=== PATIENT | male | born 1975 | race Caucasian/White ===

== ENCOUNTER 2022-03-18 11:28 | Emergency (ER) | payer BC, SELFPAY ==
[2022-03-18 11:40] VITALS: BP 151/97; PULSE 99; RESP 18; TEMP 36.6; O2SAT 98
--- NOTE | 2022-03-18 11:53 | ECG_ITS ---
Measurements Intervals [place] Rate: 136 P: GA: 0 QRS: 39 QRSD: 101 T: -30 QT: 298 QTc: 449 Interpretive Statements ATRIAL FIBRILLATION WITH RAPID VENTRICULAR RESPONSE CONSIDER INFERIOR INFARCT, AGE INDETERMINATE ABNORMAL ECG NO PREVIOUS ECG AVAILABLE FOR COMPARISON Electronically Signed On 03-18-2022 12:03:47 WATER SUPERVISOR by David Hoyos D.O.
--- NOTE | 2022-03-18 11:53 | ED.CHESTPAIN ---
HPI - Chest Pain General Stated Complaint: heart flutters Time Seen by Provider: 03/18/22 11:53 Source: patient Mode of arrival: ambulatory Limitations: no limitations History of Present Illness HPI narrative: 46-year-old male presented for complaint of heart flutter since 0700 today. States he has tried to clear the sensation with coughing but it has been constant without change today. Endorses occasional dizziness. Denies chest pain, shortness of breath, nausea or vomiting. Has recently taken OTC meds for cough and congestion, last taken about 4 days ago. Endorses about 20 years ago he had similar symptoms, stayed in the hospital but was not diagnosed with anything per pt. Since then he has had intermittent brief palpitations about every 2 weeks that clears with a cough. Reports family history of irregular heart rhythm. Patient lives in [facility], plans to leave tomorrow. Related Data Home Medications Medication Instructions Recorded Confirmed No Home Medications 03/18/22 03/18/22 Allergies Allergy/AdvReac Type Severity Reaction Status Date / Time morphine Allergy Unknown Other Verified 03/18/22 11:51 Review of Systems Review of Systems: CONSTITUTIONAL: Denies body aches, fever, chills, or sweats. EYES: Denies visual changes, redness, or discharge. ENT: Denies rhinorrhea, congestion, sore throat, or otalgia. CARDIOVASCULAR: Denies chest pain or edema. RESPIRATORY: Denies cough or dyspnea. GASTROINTESTINAL: Denies abdominal pain, nausea, vomiting, or diarrhea. GENITOURINARY: Denies dysuria or hematuria. SKIN: Denies rash, itching, or wounds. MUSCULOSKELETAL: Denies back pain, joint pain, or myalgia. NEUROLOGIC: Denies headache, numbness, tingling, or weakness. All systems reviewed & are unremarkable except as noted in HPI and below PMFSH Family History Family History Mother Hypertension Patient's mother is in good health Father Patient's father is in good health Grandparent Cerebrovascular accident, Onset Age: 200 Family history of malignant neoplasm of male breast Social History Social History Alcohol intake: current Comments At time of signature, I have reviewed and agree with nursing past medical, surgical, social and family history unless otherwise noted. Please see nursing chart for further information. There is no relevant family history pertinent to the presenting complaint Exam Narrative: GENERAL: Well-appearing, in no acute distress. HEAD: Normocephalic, atraumatic. EYES: EOMI. No redness or drainage. Conjunctivae normal. ENT: Mucous membranes pink and moist. No rhinorrhea. TMs normal bilaterally. Throat normal. Uvula midline. NECK: Normal AROM. Supple. No lymphadenopathy. CHEST: Clear to auscultation. HEART: Irregular rhythm. ABDOMEN: Soft, nontender, nondistended, normal active bowel sounds. EXTREMITIES: Normal range of motion. No edema. SKIN: Warm, dry, no rash. Capillary refill normal. Normal skin turgor. NEURO: No focal deficits. Alert and oriented x3. Gait steady. PSYCH: Normal affect. Course Course Emergency Course: Patient is aware of diagnosis, understands and agrees to treatment plan. Anticipatory guidance given. Portions of this record may have been created with voice recognition software Level of Care: Express Care Visit Vital Signs Vital signs: Vital Signs Temperature 97.8 F 03/18/22 11:40 Pulse Rate 99 03/18/22 11:40 Respiratory Rate 18 03/18/22 11:40 Blood Pressure 151/97 H 03/18/22 11:40 Pulse Oximetry 98 03/18/22 11:40 Oxygen Delivery Room Air 03/18/22 11:40 Temperature 97.8 F 03/18/22 11:40 Pulse Rate 99 03/18/22 11:40 Respiratory Rate 18 03/18/22 11:40 Blood Pressure 151/97 H 03/18/22 11:40 Pulse Oximetry 98 03/18/22 11:40 Oxygen Delivery Room Air 03/18/22 11:40 Transfer Transfered to
== END 2022-03-18 12:07 | disposition short-term general hospital (02) ==
PROVIDERS: Emergency Provider Nurse Practitioner Family; PCP Family Medicine
DX: I48.91 Unspecified atrial fibrillation (principal)
CPT/HCPCS: 93005; 99213; G0463

== ENCOUNTER 2022-03-18 12:21 | Observation (INO) | payer BC, SELFPAY ==
[2022-03-18] VITALS (48 sets, daily range): BP systolic 113–151; BP diastolic 68–129; PULSE 76–139; RESP 12–27; TEMP 36.6; O2SAT 95–100; BMI 34.5
--- NOTE | ~2022-03-18 | XR_ITS ---
XR chest 2V 03/18/2022 14:05 Indication: Chest pain Procedure: AP and lateral views of the chest Comparison: 07/04/2008 Findings: Heart size normal. No focal air space disease, pulmonary edema, pleural effusion or suspect ed pneumothorax. Impression: 1: No acute cardiopulmonary disease. Reviewed, dictated and finalized at location A. T QUALITY MANAGER Impression: 1: No acute cardiopulmonary disease.
--- NOTE | 2022-03-18 12:24 | ECG_ITS ---
Measurements Intervals [place] Rate: 143 P: AL: 0 QRS: 43 QRSD: 99 T: -16 QT: 276 QTc: 427 Interpretive Statements ATRIAL FIBRILLATION WITH RAPID VENTRICULAR RESPONSE CONSIDER INFERIOR INFARCT, AGE INDETERMINATE BASELINE ARTIFACT- I, II, AVR ABNORMAL ECG COMPARED TO ECG 03/18/2022 11:52:12 NO SIGNIFICANT CHANGES Electronically Signed On 03-18-2022 12:48:35 WHARF OPERATOR by David Hoyos D.O.
[2022-03-18 12:43] LABS: Basophils Percent Auto 0.5 % (0.2-1.2); Eosinophils Absolute Auto 0.1 K/mm3 (0-0.3); Eosinophils Percent Auto 1.4 % (0-4.4); Hematocrit 45.9 % (42.0-52.0); Hemoglobin 15.5 g/dL (14.0-18.0); Immature Granulocyte Absolute 0.02 K/mm3 (0.00-0.031); Immature Granulocyte Percent A 0.3 % (0-0.5); Lymphocytes Absolute Auto 3.03 K/mm3 (0.9-3.2); Lymphocytes Percent Auto 38.6 % (18.3-44.2); Mean Corpuscular HGB Conc 33.8 g/dl (32-36); Mean Corpuscular Hemoglobin 30.6 pg (26-34); Mean Corpuscular Volume 90.7 fl (80-100); Mean Platelet Volume 9.7 fl (7.4-10.4); Monocytes Absolute Auto 0.5 K/mm3 (0.1-0.6); Monocytes Percent Auto 6.5 % (2.6-8.5); Neutrophils Absolute Auto 4.1 K/mm3 (1.3-6.7); Neutrophils Percent Auto 52.7 % (45.5-73.1); Platelet Count Result 213 k/mm3 (150-375); Red Blood Count 5.06 M/mm3 (4.6-6.20); Red Cell Distribution Width 13.5 % (11.5-14.5); White Blood Count 7.8 K/mm3 (4.5-10.0)
[2022-03-18 12:52] LABS: Alanine Aminotransferase 76 U/L (6-50); Albumin Level 4.4 g/dL (3.5-5.1); Alkaline Phosphatase 74 U/L (38-126); Anion Gap 5 mmol/L (8-16); Aspartate Amino Transferase 35 U/L (17-59); Bilirubin,Total 0.5 mg/dL (0.2-1.3); Blood Urea Nitrogen 14 mg/dL (9-20); Calcium 8.4 mg/dL (8.4-10.2); Carbon Dioxide 27 mmol/L (22-30); Chloride 106 mmol/L (98-107); Estimated CRCL calculation 103 ml/min; Estimated Glomerular Filt Rate > 60; Glucose 120 mg/dL (65-110); Lipase 64 U/L (23-300); Potassium 3.7 mmol/L (3.4-5.0); Sodium 138 mmol/L (137-145)
[2022-03-18 12:56] LABS: Partial Thromboplastin Time 25.8 SECONDS (22.3-36.8); Prothrombin Time 12.3 Seconds (11.1-14.7)
[2022-03-18 13:02] LABS: Troponin I < 0.012 ng/mL (0.000-0.034)
--- NOTE | 2022-03-18 13:05 | ED.CHESTPAIN ---
HPI - Chest Pain General Chief Complaint: Chest Pain Stated Complaint: chest pain, new onset afib, Time Seen by Provider: 03/18/22 13:05 History of Present Illness HPI narrative: Patient is a 46-year-old male presenting with palpitations. Patient states that he woke this morning with a fluttering in the left side of his chest associated with chest heaviness. States that this sensation continued throughout the morning and he had multiple episodes of diaphoresis and lightheadedness as well. States that he had an episode similar to this approximately 20 years ago but he was not diagnosed with A. fib at this time and was not started on medications. Patient states that he has had a cold which has been improving over the last several weeks. Patient works for the [employer] and resides in [facility]. He and his are stateside for the holidays. He was recently on a 36-hour flight to the . They are supposed to leave tomorrow morning to return. Patient states they have limited access to medical care in [facility]. Related Data Home Medications Medication Instructions Recorded Confirmed No Home Medications 03/18/22 03/18/22 Allergies Allergy/AdvReac Type Severity Reaction Status Date / Time morphine Allergy Unknown Other Verified 03/18/22 11:51 Review of Systems Review of Systems: All systems reviewed & are unremarkable except as noted in HPI and below PMFSH Family History Family History Mother Hypertension Patient's mother is in good health Father Patient's father is in good health Grandparent Cerebrovascular accident, Onset Age: 200 Family history of malignant neoplasm of male breast Social History Social History Alcohol intake: current Exam Narrative: GENERAL: Well-appearing, well-nourished, and in no acute distress. HEAD: Normocephalic, atraumatic. EYES: PERRLA and EOMI. ENT: Nares clear, no rhinorrhea or epistaxis. Mucous membranes moist. NECK: Supple. CHEST: Clear to auscultation. No respiratory distress. HEART: Irregular rhythm, tachycardic. No murmur heard. Normal peripheral pulses. ABDOMEN: Soft, nontender, nondistended, normal active bowel sounds. EXTREMITIES: Normal range of motion. No edema. SKIN: Warm, dry, no rash. NEURO: No focal deficits. Alert and oriented x3. PSYCH: Normal mood and affect. Course Vital Signs Vital signs: Vital Signs Temperature 97.9 F 03/18/22 12:31 Pulse Rate 82 03/18/22 12:31 Blood Pressure 151/89 H 03/18/22 12:31 Pulse Oximetry 98 03/18/22 12:31 Temperature 97.9 F 03/18/22 12:31 Pulse Rate 134 H 03/18/22 14:06 Respiratory Rate 24 H 03/18/22 13:09 Blood Pressure 120/86 03/18/22 14:06 Pulse Oximetry 98 03/18/22 13:09 MDM - Chest Pain MDM Narrative Medical decision making narrative: Patient is a 46-year-old male presenting with palpitations, lightheadedness, chest discomfort. Patient tachycardic in the 130s to 140s on arrival. Normotensive. EKG per my interpretation shows atrial fibrillation with RVR with a ventricular rate of 143, no ST elevations or depressions. Patient given a dose of 10 mg diltiazem with decrease in his rate to 100s. Unfortunately, his rate bumped back up to the 120s-130s so diltiazem drip ordered. Patient was supposed to leave for [facility] tomorrow morning and states he is unable to access medical care there. Given this and his uncontrolled rate, decision made to admit him to medicine for further management. Lab Data 03/18/22 12:33 03/18/22 12:33 Labs: Lab Results 03/18/22 03/18/22 03/18/22 Range/Units 12:33 12:33 12:33 WBC 7.8 (4.5-10.0) K/mm3 RBC 5.06 (4.6-6.20) M/mm3 Hgb 15.5 (14.0-18.0) g/dL Hct 45.9 (42.0-52.0) % MCV 90.7 (80-100) fl MCH 30.6 (26-34) pg MCHC 33.8 (32-36) g/dl RDW 13.5 (11.5-14.5)
[2022-03-18] MEDS: dilTIAZem HCl INJ 25 MG/5 ML VIAL 10 MG IV PUSH (13:09)
[2022-03-18] MEDS: dilTIAZem 100 MG/100 ML 100 MG/100 ML BAG IV CONT (14:06)
[2022-03-18 14:19] LABS: Influenza A QL RT-PCR Negative (Negative); Influenza B QL RT-PCR Negative (Negative); SARS-CoV-2 RNA PCR Negative
--- NOTE | 2022-03-18 16:11 | PM.IMHP ---
H&P: HPI History of Present Illness Date/Time: 03/18/22 16:11 Chief Complaint: Chest pain Narrative: This is of 46 year old male patient who stated that he went into a brief period of AFib approximately 20 years ago. It resolved on its own and has never been on any medication. The patient woke up this morning with fluttering in his chest. He felt some left-sided chest heaviness. Patient had multiple episodes of diaphoresis and lightheadedness. The patient has been struggling with a cold over the last several weeks. 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 He recently had a 36 hour flight to the [facility]. The patient is supposed to leave tomorrow to return to [facility]. He has limited access to medical care in [facility]. Chest x-ray was read as no acute cardiopulmonary disease. Patient was given an aspirin, IV Cardizem, and Cardizem drip. The patient is being admitted to observation status on date of service 03/18/2022. Review of Systems Review of Systems: See HPI All systems reviewed & are unremarkable except as noted in HPI and below Constitutional: Constitutional: Reports as per HPI and Reports no additional constitutional complaints Eyes: Eyes: Reports as per HPI and Reports no additional eye complaints ENT: Reports system reviewed and no additional complaints, except as documented and Reports Normal hearing present Cardiovascular: Cardiovascular: Reports no additional cardiovascular complaints Respiratory: Respiratory: Reports no additional respiratory complaints and Reports no additional respiratory complaints Gastrointestinal: Gastrointestinal: Reports as per HPI and Reports no additional gastrointestinal complaints Musculoskeletal: Musculoskeletal: Reports no additional musculoskeletal complaints Integumentary/Breasts: Skin/Breast: Reports system reviewed and no additional complaints, except as docu and Reports as per HPI Neurologic: Reports system reviewed and no additional complaints, except as documented, Reports as per HPI and Reports Normal hearing present Psychiatric: Psychiatric: Reports no additional psychiatric complaints and Reports as per HPI Endocrine: Endocrine: Reports no additional endocrine complaints Hematologic/Lymphatic: Hematologic/Lymphatic: Reports no additional hematologic/lymphatic complaints Allergic/Immunologic: Allergic/Immunologic: Reports no additional allergic/immunologic complaints [facility] Surgical History Surgical History H/O arthroscopic knee surgery 2 times right knee H/O esophagogastroduodenoscopy H/O: vasectomy Family History Family History Mother Hypertension Patient's mother is in good health Father Patient's father is in good health Grandparent Cerebrovascular accident, Onset Age: 200 Family history of malignant neoplasm of male breast Social History Social History (Updated 03/18/22 @ 17:45 by Ning Nam NP) Social History: She is and has 2 children. 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 He is a lifelong nonsmoker. His is the durable power glassware verifier for healthcare. Code status full code Smoking status: Never smoker Alcohol intake: current Meds Home Medications and Allergies Home Medications Medication Instructions Recorded Confirmed Type No Home Medications 03/18/22 03/18/22 History Allergies Allergy/AdvReac Type Severity Reaction Status Date / Time morphine Allergy Unknown Other Verified 03/18/22 11:51 Vital Signs Vital Signs - 24 hr 03/18/22 12:31 03/18/22 13:09 03/18/22 14:06 Temperature 36.6 C Pulse Rate 82 132 H 134 H Respiratory Rate 24 H Blood Pressure 151/89 H 148/129 H 120/86 Pulse Oximetry 98 98 Exam Const: General: cooperative, healthy appearing, comfortable, no acute dis
[2022-03-18 16:20] LABS: Troponin I < 0.012 ng/mL (0.000-0.034)
--- NOTE | 2022-03-18 17:10 | PC.NURSE ---
heart healthy dinner tray ordered
[2022-03-18] MEDS: ENOXAPARIN 120 MG/0.8 ML SYRINGE 110 MG SUB-Q (19:01)
--- NOTE | 2022-03-18 19:29 | PC.NURSE ---
report received from Panchito GOVEA including history and physical and plan of care
[2022-03-18 19:38] LABS: D Dimer 0.41 ug/mL (<0.48)
--- NOTE | 2022-03-18 19:54 | ECG_ITS ---
Measurements Intervals [place] Rate: 80 P: 37 WI: 156 QRS: 27 QRSD: 96 T: 28 QT: 368 QTc: 426 Interpretive Statements SINUS RHYTHM CONSIDER INFERIOR INFARCT, AGE INDETERMINATE BASELINE ARTIFACT- I, III, AVR, AVL, AVF ABNORMAL ECG COMPARED TO ECG 03/18/2022 12:27:57 SINUS RHYTHM NOW PRESENT Electronically Signed On 03-19-2022 9:40:38 DIRECTOR OF MOBILE MARKETING by David Hoyos D.O.
[2022-03-18 19:57] LABS: Troponin I < 0.012 ng/mL (0.000-0.034)
--- NOTE | 2022-03-18 20:18 | PC.NURSE ---
Ekg performed to confirm patient's conversion to sinus rhythm. Ning Nam NP notified. Verbal order to stop cardizem drip
--- NOTE | 2022-03-18 22:58 | ADMGEN ---
This patient, Jean Mraie Pang, was admitted to Intensive Care Unit-10. Patient/family oriented to hospital policies and general routines including ID bracelet, bed and alarms, visiting hours, pain management, procedures, bathroom and other care routines, personal items, smoking policy, room service/diet, and visiting hours. Information on how to activate the Rapid Response Team has been discussed. Patient/Family are encouraged to report perceived risks to care and to ask questions if they do not understand what they are told or what they should do.
[2022-03-19] VITALS (7 sets, daily range): BP systolic 110–117; BP diastolic 78–82; PULSE 68–96; RESP 15–23; TEMP 36.6–37.1; O2SAT 96–98
--- NOTE | 2022-03-19 | ECHO_ITS ---
Patient Info Name: Jean Marie Pang Age: 46 years : 1975 Gender: Male Ht: 71 in Wt: 242 lbs BSA: 2.38 m2 HR: 86 bpm BP: 144 / 60 mmHg Exam Date: 03/19/2022 6:57 AM Exam Location: [facility] Pulmonary Patient Status: Inpatient Admit Date: 03/18/2022 Staff Ordering Physician: Ning Nam NP Child Life Specialist: ANT Attending Provider: Evelio Trinidad MD Referring Physician: Cyril GUERRERO; Exam Type: CA echo doppler color flow Study Info Indications I48.1 - Persistent atrial fibrillation Complete two-dimensional, color flow and Doppler transthoracic echocardiogram is performed. Summary 1. Complete two-dimensional, color flow and Doppler transthoracic echocardiogram is performed. 2. Normal LV size; mild LVH, normal LV systolic function, ejection fraction about 55-60%. Normal diastolic function. Mild left atrial enlargement. No significant valvular abnormality. Normal sinus rhythm at the time of exam. Left Ventricle Left ventricular chamber dimension is normal. Left ventricular systolic function is normal, estimated at 55-60%. There is mildly increased left ventricular wall thickness. The left ventricular diastolic function is normal. Right Ventricle Right ventricular chamber dimension is normal. Right ventricular systolic function is normal. Left Atria Left atrial chamber dimension is normal. Right Atria Right atrial chamber dimension is normal. Aortic Valve The aortic valve is normal. There is no aortic valve stenosis. Pulmonic Valve The pulmonic valve is normal. There is trace pulmonic regurgitation. Mitral Valve The mitral valve has normal leaflets. There is no mitral valve regurgitation. Tricuspid Valve There is trace tricuspid valve regurgitation. Pericardium/Pleural The pericardium appears normal. Aorta The aortic root size at the sinus of Valsalva is normal. Tricuspid Valve Name Value Normal Estimated PAP/RSVP RA Pressure 8 mmHg <=5 Report Signatures
[2022-03-19 04:38] LABS: Basophils Absolute Auto 0.1 K/mm3 (0.0-0.1); Basophils Percent Auto 0.6 % (0.2-1.2); Eosinophils Absolute Auto 0.2 K/mm3 (0-0.3); Eosinophils Percent Auto 2.2 % (0-4.4); Hemoglobin 14.4 g/dL (14.0-18.0); Immature Granulocyte Absolute 0.02 K/mm3 (0.00-0.031); Immature Granulocyte Percent A 0.2 % (0-0.5); Lymphocytes Absolute Auto 4.09 K/mm3 (0.9-3.2); Lymphocytes Percent Auto 47.9 % (18.3-44.2); Mean Corpuscular HGB Conc 33.5 g/dl (32-36); Mean Corpuscular Hemoglobin 29.7 pg (26-34); Mean Corpuscular Volume 88.7 fl (80-100); Monocytes Absolute Auto 0.5 K/mm3 (0.1-0.6); Monocytes Percent Auto 6.3 % (2.6-8.5); Neutrophils Absolute Auto 3.6 K/mm3 (1.3-6.7); Neutrophils Percent Auto 42.8 % (45.5-73.1); Platelet Count Result 187 k/mm3 (150-375); Red Blood Count 4.85 M/mm3 (4.6-6.20); Red Cell Distribution Width 13.4 % (11.5-14.5); White Blood Count 8.5 K/mm3 (4.5-10.0)
[2022-03-19 04:52] LABS: Alanine Aminotransferase 64 U/L (6-50); Albumin Level 3.9 g/dL (3.5-5.1); Alkaline Phosphatase 71 U/L (38-126); Anion Gap 5 mmol/L (8-16); Aspartate Amino Transferase 28 U/L (17-59); Bilirubin,Total 0.7 mg/dL (0.2-1.3); Blood Urea Nitrogen 13 mg/dL (9-20); Carbon Dioxide 26 mmol/L (22-30); Chloride 109 mmol/L (98-107); Estimated CRCL calculation 104 ml/min; Estimated Glomerular Filt Rate > 60; Glucose 100 mg/dL (65-110); Magnesium 2.1 mg/dL (1.6-2.3); Potassium 3.7 mmol/L (3.4-5.0); Sodium 140 mmol/L (137-145)
[2022-03-19] MEDS: ENOXAPARIN 120 MG/0.8 ML SYRINGE 110 MG SUB-Q (06:01)
--- NOTE | 2022-03-19 09:50 | PM.CNCAR ---
Assessment and Plan Assessment and plan (1) PAF (paroxysmal atrial fibrillation): Code(s): I48.0 - Paroxysmal atrial fibrillation Status: Acute Assessment and Plan: 46-year-old male with history of occasional palpitations presented to the hospital with fluttering in the chest. He was found to be in atrial fibrillation with RVR. He received diltiazem, and subsequently had orthodoxy of sinus rhythm. Patient gives history of occasional palpitations without documented diagnosis of atrial fibrillation in the past. TSH within normal limits. Recent long distance travel. D-dimer negative. His current CHADSVASc score is 0. For now, aspirin would be appropriate pending echo results. Echocardiogram with Doppler is pending to rule out any major structural heart disease. Spoke at length with the patient and his about his arrhythmia. Patient has paroxysmal l atrial fibrillation and is currently in sinus rhythm. He does give history of occasional palpitations, although current event was more sustained. He probably has paroxysms of atrial fibrillation. Rhythm control strategy was discussed with the patient and he is in agreement. Will initiate dronedarone 400 mg p.o. b.i.d. to help maintain sinus rhythm. In addition, low-dose diltiazem will be added to the regimen. If patient has recurrent episodes of symptomatic atrial fibrillation despite being on antiarrhythmic treatment, then he will be referred to electrophysiology to determine his candidacy for radiofrequency ablation treatment for atrial fibrillation. Patient will follow-up in the outpatient cardiology clinic. He states that he will be posted in [facility] till August-September this year. He was advised to continue to monitor his symptoms and follow-up at Cardiology Clinic after his return. He was advised to seek immediate medical attention [place] if he has severe sustained symptoms. History of Present Illness History of Present Illness Consult date/time: 03/19/22 09:50 DATE OF CONSULT: 03/19/2022 REASON FOR CONSULT: New onset atrial fibrillation with RVR REQUESTING PHYSICIAN:Ning Nam NP CHIEF COMPLAINT: Heart fluttering HPI: 46-year-old male with history of ? Paroxysmal l atrial fibrillation. Patient presented to [facility] Emergency Room on 03/18/2022 with complaints of heart fluttering that started on the morning of presentation. His symptoms are associated with diaphoresis, dizziness, shortness of breath. He denied any chest pain. Patient states that he had similar palpitations about 20 years ago, and his symptoms resolved by the time he got to the hospital. Over the years, patient states that he has transient occasional palpitations. He has not had established diagnosis of atrial fibrillation in the past. He denies any other cardiac history including clinical AL, angina, heart failure or any known valvular abnormalities. Patient works for [employer] and is posted in [employer] He states that had a long distance [place] travel about 3 weeks ago. He denies any lower extremity discomfort. Initial EKG on my personal evaluation showed atrial fibrillation with RVR, ventricular rate 136 beats per minute. Patient received IV diltiazem. Subsequent EKG showed orthodoxy of sinus rhythm with heart rate at 80 beats per minute. Serial troponins negative. D-dimer negative. TSH within normal limits. On telemetry, patient is currently in sinus rhythm. Reason For Visit: Atrial Fibrillation with RVR Review of Systems Review of Systems: General: Negative for fever, chills, fatigue Psychological: Negative for anxiety, depression Ophthalmic: negative for loss of vision ENT: Negative for epistaxis, headaches Allergy and immunology: Negative for hives, nasal congestion Hematologic and lymphatic: Negative for overt bleeding problems Endocrine: Negative for hot flashes, palpitations Respiratory: Negative for cough, hemoptysis Cardiovascular: Negative for chest
[2022-03-19] MEDS: ASPIRIN 81 MG ENTERIC TABLET PO (10:46)
--- NOTE | 2022-03-19 12:28 | PM.DS ---
DS: Admitting Diagnosis Discharge Date 19 March 2022 Admitting Diagnosis Atrial fibrillation with rapid ventricular rate DS: Discharge Diagnosis Discharge Diagnosis (1) Atrial fibrillation, new onset: Code(s): I48.91 - Unspecified atrial fibrillation Status: Inactive Assessment and Plan: -the patient had an episode approximately 20 years ago and has had intermittent brief palpitations since then. He was not treated with medications during that time -Cardiology reviewed EKG and echocardiogram and cleared patient for discharge. -He was to follow up with Cardiology in approximately 6 months when he returns from [facility] for referral to electrophysiology and consideration for ablation therapy (2) Chest pain: Code(s): R07.9 - Chest pain, unspecified Status: Acute Assessment and Plan: Troponins nonreactive x2. No evidence for cardiac injury Plan DS: Summary Hospital Course Reason for hospitalization: Palpitations Hospital Course: Patient was admitted due to atrial fibrillation with rapid ventricular rate. He was treated with IV Cardizem and anticoagulated with Lovenox in the emergency department. Cardioverted spontaneously to normal sinus rhythm. He was seen by Cardiology and antiarrhythmic therapy was initiated with dronedarone.. Cardizem drip was discontinued and po Cardizem initiated. Remained in sinus rhythm. EKG showed no conduction abnormalities otherwise and no QT prolongation. No signs of acute or chronic ischemia. TSH and D-dimer were normal. Chest x-ray was unremarkable. Time Spent with Patient Time attestation: Total time spent providing and/or coordinating discharge services: Exam Narrative: HEENT: PERRL, sclerae nonicteric, pharyngeal mucosa pink and intact NECK: No JVD CHEST: Clear to auscultation. Normal effort. HEART: NL S1/S2, regular, no murmur ABDOMEN: BS+, soft, nontender, no mass, no bruits EXTREMITIES: No cyanosis, edema, or clubbing NEUROLOGIC: CN intact and symmetric to inspection. MUSCULOSKELETAL: Tone and strength symmetric. PSYCH: Alert. Oriented to person, place, and time. DS: Data Data Completed and Pending Labs on day of discharge: Labs from last 24 hours 03/19/22 03/19/22 03/19/22 04:01 04:01 04:01 WBC 8.5 RBC 4.85 Hgb 14.4 Hct 43.0 MCV 88.7 MCH 29.7 MCHC 33.5 RDW 13.4 Plt Count 187 MPV 10.0 Immature Gran % (Auto) 0.2 Neut % (Auto) 42.8 L Lymph % (Auto) 47.9 H [place] % (Auto) 6.3 Eos % (Auto) 2.2 Baso % (Auto) 0.6 Lymph # (Auto) 4.09 H [place] # (Auto) 0.5 Eos # (Auto) 0.2 Baso # (Auto) 0.1 Abs Immat Gran (auto) 0.02 Absolute Neuts (auto) 3.6 Absolute Nucleated RBC 0.0 Nucleated RBC % 0.0 PT INR APTT D-Dimer Sodium 140 Potassium 3.7 Chloride 109 H Carbon Dioxide 26 Anion Gap 5 L BUN 13 Creatinine 1.00 Estim Creat Clear Calc 104 Estimated GFR > 60 Glucose 100 Calcium 8.0 L Magnesium 2.1 Total Bilirubin 0.7 AST 28 ALT 64 H Alkaline Phosphatase 71 Troponin I Total Protein 7.0 Albumin 3.9 Lipase TSH (Reflex) 1.520 Influenza A (RT-PCR) Influenza B (RT-PCR) SARS-CoV-2 RNA (RT-PCR) 03/18/22 03/18/22 03/18/22 18:37 18:37 15:31 WBC RBC Hgb Hct MCV MCH MCHC RDW Plt Count MPV Immature Gran % (Auto) Neut % (Auto) Lymph % (Auto) [place] % (Auto) Eos % (Auto) Baso % (Auto) Lymph # (Auto) [place] # (Auto) Eos # (Auto) Baso # (Auto) Abs Immat Gran (auto) Absolute Neuts (auto) Absolute Nucleated RBC Nucleated RBC % PT INR APTT D-Dimer 0.41 Sodium Potassium Chloride Carbon Dioxide Anion Gap BUN Creatinine Estim Creat Clear Calc Estimated GFR Glucose Calcium Magnesium Total Bilirubin AST ALT Alkaline Phosphatase
== END 2022-03-19 13:34 | disposition home or self-care (01) ==
LOC: ANHED 13:41 → ANHICU 23:30 → ANHIMU 03-21 13:51
PROVIDERS: Emergency Medicine; Nurse Practitioner; Admitting Provider Internal Medicine; Emergency Provider Emergency Medicine; Visit Provider Internal Medicine
DX: I48.91 Unspecified atrial fibrillation (principal); R07.9 Chest pain, unspecified; R61 Generalized hyperhidrosis; R42 Dizziness and giddiness; R00.0 Tachycardia, unspecified; R94.31 Abnormal electrocardiogram [ECG] [EKG]; Z82.49 Family history of ischemic heart disease and other diseases of the circulatory system; Z20.822 Contact with and (suspected) exposure to COVID-19; F10.90 Alcohol use, unspecified, uncomplicated
CPT/HCPCS: 36415; 71046; 80053; 83690; 83735; 84443; 84484; 85025; 85380; 85610; 85730; 87636; 93005; 93306; 96365; 96366; 99285; A9270; G0378; J1650